=== PATIENT | female | born 1990 | race Caucasian/White ===

== ENCOUNTER 2019-09-04 10:40 | Outpatient (CLI) | payer OTHER, SELFPAY ==
[2019-09-04] VITALS (27 sets, daily range): BP systolic 125–145; BP diastolic 76–95; PULSE 90–148; O2SAT 97–100
[2019-09-04 11:48] LABS: Basophils Absolute Auto 0.1 K/mm3 (0.0-0.1); Basophils Percent Auto 0.3 % (0.2-1.2); Eosinophils Absolute Auto 0.1 K/mm3 (0-0.3); Eosinophils Percent Auto 0.7 % (0-4.4); Hematocrit 34.3 % (37.0-47.0); Hemoglobin 11.1 g/dL (12.0-15.0); Immature Granulocyte Absolute 0.11 K/mm3 (0.00-0.031); Immature Granulocyte Percent A 0.6 % (0-0.5); Lymphocytes Percent Auto 14.9 % (18.3-44.2); Mean Corpuscular HGB Conc 32.4 g/dl (32-36); Mean Corpuscular Hemoglobin 26.1 pg (26-34); Mean Corpuscular Volume 80.7 fl (80-100); Mean Platelet Volume 9.9 fl (7.4-10.4); Monocytes Absolute Auto 0.9 K/mm3 (0.1-0.6); Monocytes Percent Auto 4.9 % (2.6-8.5); Neutrophils Absolute Auto 13.7 K/mm3 (1.3-6.7); Neutrophils Percent Auto 78.6 % (45.5-73.1); Platelet Count Result 345 k/mm3 (150-375); Red Blood Count 4.25 M/mm3 (4.2-5.4); Red Cell Distribution Width 14.8 % (11.5-14.5); White Blood Count 17.5 K/mm3 (4.5-10.0)
[2019-09-04 11:54] LABS: Add Urine Microscopic? YES; Appearance Urine Cloudy (Clear); Bacteria Urine 2+ /hpf; Bilirubin Urine Negative (Negative); Blood Urine Negative (Negative); Color Urine Amber (Yellow); Glucose Urine UA Negative (Negative); Ketones Urine Negative (Negative); Leukocyte Esterase Ur 2+ LEU/UL (NEGATIVE); Mucus Urine Heavy /lpf; Nitrate Urine Negative (Negative); Protein Urine 2+ mg/dL (Negative); Squamous Epithelial Cell Urine Many /hpf (Few); Urobilinogen Urine Negative mg/dL (<2.0)
[2019-09-04 12:00] LABS: Alanine Aminotransferase 24 U/L (4-35); Albumin Level 3.7 g/dL (3.5-5.1); Alkaline Phosphatase 91 U/L (38-126); Aspartate Amino Transferase 23 U/L (14-36); Bilirubin,Total < 0.1 mg/dL (0.2-1.3); Blood Urea Nitrogen 6 mg/dL (7-17); Calcium 9.5 mg/dL (8.4-10.2); Carbon Dioxide 22 mmol/L (22-30); Chloride 105 mmol/L (98-107); Estimated Glomerular Filt Rate > 60; Glucose 92 mg/dL (65-105); Potassium 3.7 mmol/L (3.4-5.0); Sodium 134 mmol/L (137-145); Uric Acid 3.4 mg/dL (2.5-7.5)
[2019-09-04 12:03] LABS: Specific Grav Ur 1.033 (1.001-1.035)
[2019-09-04 12:38] LABS: Creatinine Urine 202.5 mg/dL; Total Protein Urine Random 10 mg/dL
--- NOTE | 2019-09-04 12:55 | PC.NURSE ---
Dr Marshall called in, OK to dc home with BP precautions. Encourage to increase PO fluids and Tylenol as needed.
== END 2019-09-04 13:00 | disposition home or self-care (01) ==
LOC: ANHOBOP 10:54 → ANHOBPP 10:55
PROVIDERS: PCP Physician Assistant; Visit Provider Obstetrics & Gynecology
DX: O13.9 Gestational [pregnancy-induced] hypertension without significant proteinuria, unspecified trimester (principal)
CPT/HCPCS: 36415; 80053; 81001; 82570; 84156; 84550; 85025; 87086; 87088; 99199

== ENCOUNTER 2019-11-20 15:58 | Outpatient (CLI) | payer OTHER, SELFPAY ==
[2019-11-20 16:31] VITALS: BMI 41.8
[2019-11-20 16:32] VITALS: BP 145/83; PULSE 114; RESP 18
[2019-11-20 16:33] VITALS: BP 145/83; PULSE 114
[2019-11-20 16:46] VITALS: BP 146/77; PULSE 116
[2019-11-20 17:01] VITALS: BP 144/77; PULSE 116
[2019-11-20 17:03] LABS: Basophils Percent Auto 0.2 % (0.2-1.2); Eosinophils Absolute Auto 0.1 K/mm3 (0-0.3); Eosinophils Percent Auto 0.6 % (0-4.4); Hematocrit 33.6 % (37.0-47.0); Hemoglobin 10.8 g/dL (12.0-15.0); Immature Granulocyte Percent A 0.6 % (0-0.5); Lymphocytes Absolute Auto 2.46 K/mm3 (0.9-3.2); Lymphocytes Percent Auto 14.8 % (18.3-44.2); Mean Corpuscular HGB Conc 32.1 g/dl (32-36); Mean Corpuscular Hemoglobin 26.3 pg (26-34); Mean Corpuscular Volume 81.8 fl (80-100); Mean Platelet Volume 10.3 fl (7.4-10.4); Monocytes Absolute Auto 0.9 K/mm3 (0.1-0.6); Monocytes Percent Auto 5.3 % (2.6-8.5); Neutrophils Absolute Auto 13.1 K/mm3 (1.3-6.7); Neutrophils Percent Auto 78.5 % (45.5-73.1); Platelet Count Result 318 k/mm3 (150-375); Red Blood Count 4.11 M/mm3 (4.2-5.4); Red Cell Distribution Width 14.8 % (11.5-14.5); White Blood Count 16.6 K/mm3 (4.5-10.0)
[2019-11-20 17:08] LABS: Add Urine Microscopic? YES; Appearance Urine Cloudy (Clear); Bacteria Urine Trace /hpf; Bilirubin Urine Negative (Negative); Blood Urine Negative (Negative); Glucose Urine UA Negative (Negative); Ketones Urine Trace mg/dL (Negative); Leukocyte Esterase Ur 3+ LEU/UL (NEGATIVE); Mucus Urine Heavy /lpf; Nitrate Urine Negative (Negative); Protein Urine 2+ mg/dL (Negative); Squamous Epithelial Cell Urine Many /hpf (Few); WBC Urine 16-20 /hpf (0-3)
[2019-11-20 17:09] LABS: Color Urine Dark Yellow (Yellow); Specific Grav Ur 1.031 (1.001-1.035)
[2019-11-20 17:15] LABS: Alanine Aminotransferase 58 U/L (4-35); Albumin Level 3.3 g/dL (3.5-5.1); Alkaline Phosphatase 153 U/L (38-126); Anion Gap 11.2 mmol/L (7-16); Aspartate Amino Transferase 42 U/L (14-36); Bilirubin,Total 0.2 mg/dL (0.2-1.3); Blood Urea Nitrogen 9 mg/dL (7-17); Calcium 8.7 mg/dL (8.4-10.2); Carbon Dioxide 22 mmol/L (22-30); Chloride 105 mmol/L (98-107); Estimated CRCL calculation 148 ml/min; Estimated Glomerular Filt Rate > 60; Glucose 117 mg/dL (65-105); Potassium 4.2 mmol/L (3.4-5.0); Sodium 134 mmol/L (137-145); Uric Acid 5.1 mg/dL (2.5-7.5)
[2019-11-20 17:31] VITALS: BP 143/77; PULSE 106
[2019-11-20 17:34] LABS: Creatinine Urine 333.1 mg/dL; Total Protein Urine Random 9 mg/dL
[2019-11-20 18:00] VITALS: BP 143/77; PULSE 99
--- NOTE | 2019-11-20 18:04 | PC.NURSE ---
called Dr. Marshall and notified pt present here for elevated BP. PIH lab result reported. elevated Liver enzyme was made aware. order received to increase procardia XL to 60 mg in am and 30 mg in night. educated smoking cessation and diet control for GDM. Pt has appointment at [facility] tomorrow and with Dr. Marshall on sunday. HIP and preeclampsia precaution given. pt verbalized understanding.
== END 2019-11-20 18:00 | disposition home or self-care (01) ==
LOC: ANHOBOP 16:04 → ANHOBPP 16:05
PROVIDERS: PCP Physician Assistant; Visit Provider Obstetrics & Gynecology
DX: O13.9 Gestational [pregnancy-induced] hypertension without significant proteinuria, unspecified trimester (principal)
CPT/HCPCS: 36415; 59025; 80053; 81001; 82570; 84156; 84550; 85025; 87086; 87088; 99199

== ENCOUNTER 2019-12-01 16:29 | Outpatient (CLI) | payer OTHER, SELFPAY ==
[2019-12-01] VITALS (7 sets, daily range): BP systolic 103–168; BP diastolic 64–110; PULSE 96–140
--- NOTE | ~2019-12-01 | US_ITS ---
EXAMINATION: US OB BPP wo non-stress EXAM DATE: 12/01/2019 18:08 INDICATION: Elevated blood pressure. 3rd trimester. TECHNIQUE: Pelvic obstetrical transabdominal sonogram was performed by a technologist. There are mu ltiple grayscale and Doppler images available for interpretation. FINDINGS: There is a single fetus identified in vertex presentation with a heart rate of 130 beats pe r minute. The placenta is located in the posterior position. There is no sonographic evidence of ret roplacental hemorrhage identified. BIOPHYSICAL PROFILE (performed by the technologist) breathing (30 sec sustained breathing in 30 minutes): 2 out of 2 movement (3 gross body movements in 30 minutes): 2 out of 2 tone (one episode of ysetclj-ntwckhhai-sxltidz limb movement): 2 out of 2 Amniotic fluid pocket (2 cm): 2 out of 2 Total score: 8 out of 8 IMPRESSION: 1. Single fetus with heart rate of 130 bpm. 2. Normal biophysical profile score of 8 out of 8. Reviewed, dictated and finalized at location A.
[2019-12-01 17:28] LABS: Basophils Percent Auto 0.2 % (0.2-1.2); Eosinophils Absolute Auto 0.1 K/mm3 (0-0.3); Eosinophils Percent Auto 0.6 % (0-4.4); Hematocrit 33.2 % (37.0-47.0); Hemoglobin 10.5 g/dL (12.0-15.0); Immature Granulocyte Absolute 0.12 K/mm3 (0.00-0.031); Immature Granulocyte Percent A 0.7 % (0-0.5); Lymphocytes Percent Auto 17.2 % (18.3-44.2); Mean Corpuscular HGB Conc 31.6 g/dl (32-36); Mean Corpuscular Hemoglobin 25.4 pg (26-34); Mean Corpuscular Volume 80.2 fl (80-100); Mean Platelet Volume 10.6 fl (7.4-10.4); Monocytes Percent Auto 5.6 % (2.6-8.5); Neutrophils Absolute Auto 13.2 K/mm3 (1.3-6.7); Neutrophils Percent Auto 75.7 % (45.5-73.1); Platelet Count Result 294 k/mm3 (150-375); Red Blood Count 4.14 M/mm3 (4.2-5.4); Red Cell Distribution Width 14.8 % (11.5-14.5); White Blood Count 17.4 K/mm3 (4.5-10.0)
[2019-12-01 17:36] LABS: Add Urine Microscopic? YES; Appearance Urine Cloudy (Clear); Bacteria Urine Trace /hpf; Bilirubin Urine Negative (Negative); Blood Urine Negative (Negative); Color Urine Yellow (Yellow); Glucose Urine UA Negative (Negative); Ketones Urine Negative (Negative); Leukocyte Esterase Ur 2+ LEU/UL (NEGATIVE); Mucus Urine Few /lpf; Nitrate Urine Negative (Negative); Protein Urine 2+ mg/dL (Negative); RBC Urine 0-2 /hpf (0-2); Specific Grav Ur 1.027 (1.001-1.035); Squamous Epithelial Cell Urine Many /hpf (Few); Urobilinogen Urine Negative mg/dL (<2.0)
[2019-12-01 17:36] LABS: Total Protein Urine Random 9 mg/dL
[2019-12-01 17:49] LABS: Alanine Aminotransferase 54 U/L (4-35); Albumin Level 3.1 g/dL (3.5-5.1); Alkaline Phosphatase 156 U/L (38-126); Anion Gap 8.9 mmol/L (7-16); Aspartate Amino Transferase 36 U/L (14-36); Bilirubin,Total 0.2 mg/dL (0.2-1.3); Blood Urea Nitrogen 12 mg/dL (7-17); Calcium 8.6 mg/dL (8.4-10.2); Carbon Dioxide 21 mmol/L (22-30); Chloride 107 mmol/L (98-107); Estimated Glomerular Filt Rate > 60; Glucose 82 mg/dL (65-105); Potassium 3.9 mmol/L (3.4-5.0); Sodium 133 mmol/L (137-145); Uric Acid 5.4 mg/dL (2.5-7.5)
== END 2019-12-01 19:10 | disposition home or self-care (01) ==
LOC: ANHOBOP 16:56 → ANHOBPP 16:57
PROVIDERS: PCP Physician Assistant; Visit Provider Obstetrics & Gynecology
DX: O13.9 Gestational [pregnancy-induced] hypertension without significant proteinuria, unspecified trimester (principal)
CPT/HCPCS: 36415; 59025; 76819; 80053; 81001; 82570; 84156; 84550; 85025; 87086; 99199

== ENCOUNTER 2019-12-12 11:19 | Inpatient (IN) | payer OTHER, SELFPAY ==
--- NOTE | 2019-12-03 14:05 | PC.NURSE ---
VERIFIED WITH OR SCHEDULE AND PATIENT --C/S WITH BILATERAL TUBAL LIGATION ON 12/16/19 AT 0900 PATIENT GIVEN REQUISITION FOR PRE-OP LAB DRAW ON 12/15/19
[2019-12-12] VITALS (77 sets, daily range): BP systolic 101–163; BP diastolic 50–116; PULSE 75–127; RESP 14–24; TEMP 36.1–37.1; O2SAT 91–100; BMI 42.8
[2019-12-12] MEDS: LABETALOL HCL INJ 100 MG/20 ML VIAL 20 MG IV PUSH (12:00)
[2019-12-12] MEDS: LACTATED RINGERS 1,000 ML 125 ML IV CONT (12:05)
[2019-12-12 12:09] LABS: Glucose Point of Care 99 (65-105)
--- NOTE | 2019-12-12 12:12 | LDADM ---
This patient, Alexandra Isaacs, was admitted to Labor/Delivery/Recovery 119 on 12/12/19 at 11:19. Plans for section, pain management and were discussed with patient. Patient/family oriented to hospital policies and general routines including ID bracelet, bed and alarms, visiting hours, pain management, procedures, bathroom and other care routines, personal items, smoking policy, room service/diet and guest tray routines, security routines, and visiting hours. Patient/Family are encouraged to report perceived risks to care and to ask questions if they do not understand what they are told or what they should do. See OBIX for further documentation.
[2019-12-12] MEDS: ONDANSETRON INJ 4 MG/2 ML VIAL IV PUSH (12:16)
[2019-12-12 12:18] LABS: Basophils Absolute Auto 0.1 K/mm3 (0.0-0.1); Basophils Percent Auto 0.4 % (0.2-1.2); Eosinophils Absolute Auto 0.1 K/mm3 (0-0.3); Eosinophils Percent Auto 0.5 % (0-4.4); Hematocrit 34.8 % (37.0-47.0); Immature Granulocyte Percent A 0.6 % (0-0.5); Lymphocytes Absolute Auto 2.69 K/mm3 (0.9-3.2); Lymphocytes Percent Auto 16.1 % (18.3-44.2); Mean Corpuscular HGB Conc 31.6 g/dl (32-36); Mean Corpuscular Volume 79.1 fl (80-100); Mean Platelet Volume 10.7 fl (7.4-10.4); Monocytes Absolute Auto 0.9 K/mm3 (0.1-0.6); Monocytes Percent Auto 5.1 % (2.6-8.5); Neutrophils Absolute Auto 12.9 K/mm3 (1.3-6.7); Neutrophils Percent Auto 77.3 % (45.5-73.1); Platelet Count Result 315 k/mm3 (150-375); White Blood Count 16.7 K/mm3 (4.5-10.0)
--- NOTE | 2019-12-12 12:18 | WPDANESEPPF ---
Anes - Initial Pre Proc Eval Procedure: Operation Date: 12/16/19 09:00 Proposed Procedures p Primary Section wtih Bilateral Tubal Ligation - Kathy Marshall MD Date/Time: 12/12/19 12:18 Surgeon: Sigifredo Colon MD Pre Op Diagnosis: Patient Data Age: 29 Gender: F Height: 5 ft 5 in Weight: 116.82 kg Last Vital Signs Pulse 101 H 12/12/19 12:16 BP 130/106 H 12/12/19 12:16 Allergies Allergy/AdvReac Type Severity Reaction Status Date / Time No Known Allergies Allergy Verified 07/11/14 19:09 Home Medications Medication Instructions Recorded Confirmed Type insulin glargine [Lantus U-100 16 unit SUBCUT QAM 11/20/19 12/12/19 History Insulin] insulin glargine [Lantus U-100 18 unit SUBCUT HS 11/20/19 12/12/19 History Insulin] insulin lispro 6 unit SUBCUT QAM 11/20/19 12/12/19 History insulin lispro 10 unit SUBCUT BIDWMEAL 11/20/19 12/12/19 History nifedipine [Procardia XL] 30 mg PO BID 11/20/19 12/12/19 History aspirin [Adult Low Dose Aspirin] 162 mg PO DAILY 12/03/19 12/12/19 History folic acid 1 mg PO DAILY 12/03/19 12/12/19 History magnesium 400 mg PO DAILY 12/03/19 12/12/19 History omeprazole 20 mg PO DAILY 12/03/19 12/12/19 History Laboratory Tests 12/12/19 12/12/19 12/12/19 11:59 11:59 11:59 WBC Pending RBC Pending Hgb Pending Hct Pending MCV Pending MCH Pending MCHC Pending RDW Pending Plt Count Pending MPV Pending Immature Gran % (Auto) Pending Neut % (Auto) Pending Lymph % (Auto) Pending Starke % (Auto) Pending Eos % (Auto) Pending Baso % (Auto) Pending Lymph # (Auto) Pending Starke # (Auto) Pending Eos # (Auto) Pending Baso # (Auto) Pending Abs Immat Gran (auto) Pending Absolute Neuts (auto) Pending Absolute Nucleated RBC Pending Nucleated RBC % Pending Sodium Pending Potassium Pending Chloride Pending Carbon Dioxide Pending Anion Gap Pending BUN Pending Creatinine Pending Estim Creat Clear Calc Pending Estimated GFR Pending Glucose Pending POC Capillary Glucose Uric Acid Pending Calcium Pending Total Bilirubin Pending AST Pending ALT Pending Alkaline Phosphatase Pending Total Protein Pending Albumin Pending RPR Pending 12/12/19 12:08 WBC RBC Hgb Hct MCV MCH MCHC RDW Plt Count MPV Immature Gran % (Auto) Neut % (Auto) Lymph % (Auto) Starke % (Auto) Eos % (Auto) Baso % (Auto) Lymph # (Auto) Starke # (Auto) Eos # (Auto) Baso # (Auto) Abs Immat Gran (auto) Absolute Neuts (auto) Absolute Nucleated RBC Nucleated RBC % Sodium Potassium Chloride Carbon Dioxide Anion Gap BUN Creatinine Estim Creat Clear Calc Estimated GFR Glucose POC Capillary Glucose 99 mg/dl mg/dl (65-105) Uric Acid Calcium Total Bilirubin AST ALT Alkaline Phosphatase Total Protein Albumin RPR Patient hx anesthesia problems: none Family hx anesthesia problems: none [facility] Past Medical History Medical History Diabetes Hypertension Family History Family History Father Muscle wasting disorder Heart disease Kidney disease Grandparent Congestive heart failure
--- NOTE | 2019-12-12 12:21 | PM.IMHP ---
H&P: HPI History of Present Illness Date/Time: 12/12/19 12:21 Chief complaint: Narrative: Alexandra Isaacs is a 29 year old female 0 1 0 presents at 37 weeks gestation for delivery. She has been followed for elevated blood pressures and gestational diabetes and her blood pressures have been continually elevated though she has been asymptomatic. Was seen in Maternal- Medicine appointment today with blood pressures of 170/110 and 160/90 and their recommendation is as she is 37 weeks it is time for delivery. Also her blood sugars have been well controlled with insulin twice daily. Although her pressures have been markedly elevated today she remains asymptomatic. of note her last delivery at 27 weeks via delivery was also due to elevated blood pressure. She is also scheduled for tubal ligation which we have rediscussed and she understands and consents well. Review of Systems Review of Systems: All systems reviewed & are unremarkable except as noted in HPI and below PMFSH Past Medical History Medical History Diabetes Hypertension Family History Family History Father Muscle wasting disorder Heart disease Kidney disease Grandparent Congestive heart failure Cancer Social History Social History Smoking packs per day: 0.5 Smoking cigarettes per day: 10.0 Smoking status: Current every day smoker Tobacco type: cigarettes Second hand tobacco smoke exposure: Yes Alcohol intake: current Substance use: never Additional occupation/education comments: med records Gender identity (if verbalized by the patient): Female Spiritual care concerns: No Meds Home Medications and Allergies Home Medications Medication Instructions Recorded Confirmed Type insulin glargine [Lantus U-100 16 unit SUBCUT QAM 11/20/19 12/12/19 History Insulin] insulin glargine [Lantus U-100 18 unit SUBCUT HS 11/20/19 12/12/19 History Insulin] insulin lispro 6 unit SUBCUT QAM 11/20/19 12/12/19 History insulin lispro 10 unit SUBCUT BIDWMEAL 11/20/19 12/12/19 History nifedipine [Procardia XL] 30 mg PO BID 11/20/19 12/12/19 History aspirin [Adult Low Dose Aspirin] 162 mg PO DAILY 12/03/19 12/12/19 History folic acid 1 mg PO DAILY 12/03/19 12/12/19 History magnesium 400 mg PO DAILY 12/03/19 12/12/19 History omeprazole 20 mg PO DAILY 12/03/19 12/12/19 History Allergies Allergy/AdvReac Type Severity Reaction Status Date / Time No Known Allergies Allergy Verified 07/11/14 19:09 Vital Signs Vital Signs - 24 hr 12/12/19 11:39 12/12/19 11:46 12/12/19 12:00 Pulse Rate 121 H 127 H 114 H Blood Pressure 163/116 H 141/115 H 12/12/19 12:02 12/12/19 12:12 12/12/19 12:16 Pulse Rate 116 H 101 H 101 H Blood Pressure 133/90 135/96 H 130/106 H Exam Const: General: no acute distress Resp: Auscultation: clear to auscultation bilaterally Cardio: Rate: regular rate Rhythm: regular rhythm GI: GI Palp: Yes Soft to palpation Other: Fundal height 36cm heart tones 140 and reactive H&P: Results Labs Labs: Short CBC 12/12/19 Range/Units 11:59 WBC 16.7 H (4.5-10.0) K/mm3 Hgb 11.0 L (12.0-15.0) g/dL Hct 34.8 L (37.0-47.0) % Plt Count 315 (150-375) k/mm3 Assessment and Plan Assessment and plan (1) 37 weeks gestation of : Code(s): Z3A.37 - 37 weeks gestation of Status: Acute (2) Hypertension affecting in third trimester: Code(s): O16.3 - Unspecified maternal hypertension, third trimester Status: Acute (3) Gestational diabetes: Code(s): O24.419 - Gestational diabetes mellitus in , unspecified control Status: Acute (4) Encounter for female sterilization procedure: Code(s): Z30.2 - Encounter for steriliz
[2019-12-12] MEDS: ceFAZolin 2 GM/D5W 50 ML 2 GM/50 ML BAG IVPB (12:28)
[2019-12-12 12:36] LABS: Alanine Aminotransferase 41 U/L (4-35); Albumin Level 3.2 g/dL (3.5-5.1); Alkaline Phosphatase 174 U/L (38-126); Anion Gap 7 mmol/L (8-16); Aspartate Amino Transferase 31 U/L (14-36); Bilirubin,Total 0.2 mg/dL (0.2-1.3); Blood Urea Nitrogen 12 mg/dL (7-17); Calcium 9.2 mg/dL (8.4-10.2); Carbon Dioxide 18 mmol/L (22-30); Chloride 107 mmol/L (98-107); Estimated CRCL calculation 177 ml/min; Estimated Glomerular Filt Rate > 60; Glucose 87 mg/dL (65-105); Sodium 132 mmol/L (137-145); Uric Acid 4.8 mg/dL (2.5-7.5)
--- NOTE | 2019-12-12 13:31 | P.PCNOB_ITS ---
OB - Delivery Note Procedure Procedure: Procedures Operation Date: 12/16/19 09:00 Actual Procedures Side Surgeon p Primary Section wtih Bilateral Tubal Ligation Bilateral Kathy Marshall MD events: Gestational Diabetes and Induced HTN Route of delivery: (with bilateral tubal ligation) Specimen: Yes (1. placenta 2. tubes (2)) Estimated blood loss (mL): 200 Anesthesia type: Spinal Disposition: PACU Narrative: Patient prepped draped usual manner for this procedure. Pfannenstiel incision was made was carried down to the fascia which was then extended bilaterally the length of the skin incision. Superiorly and inferiorly dissected away from the rectus muscles which were then bluntly dissected and the peritoneum was entered. Bladder flap was developed without difficulty. Uterus scored and extended lower segment with vertex delivered without difficulty. Rest of baby was delivered placenta after the cord was clamped and cut was also delivered. Uterus was closed using 0 Monocryl in a running interlocking manner with good approximation and hemostasis noted. Bilaterally the tubes were ligated using 0 plain suture and. The tissue was removed. The right ovary had a cyst which was left in place due to increased vascularity. Uterus returned to the abdomen gutters were cleared of serosanguineous fluid and clots pedicles were noted to be hemostatic and the incision was hemostatic as well. Fascia was approximated using 0 Vicryl left angle midline at right angle midline with good approximation hemostasis noted. Subcutaneous tissue was approximated using 0 plain suture and tin used to approximate skin edges. Patient sent to recovery room in stable condition. [place] Baby Weeks of gestation at delivery: 37 gender: Female Weight (pounds): 6 Weight (ounces): 5 score one minute: 8 score five minutes: 9
[2019-12-12] MEDS: MAGNESIUM SULF 4 GM/WATER100ML 4 GM/100 ML BAG IVPB (13:54)
--- NOTE | 2019-12-12 13:58 | SUR.PHASEI ---
Infant to room and placed skin to skin.
[2019-12-12] MEDS: MAGNESIUM SULF 20GM/WATER500ML 500 ML 50 MG IV CONT (14:28)
[2019-12-12] MEDS: NIFEdipine 10 MG CAPSULE 30 MG PO (19:26)
[2019-12-12] MEDS: DOCUSATE SODIUM 100 MG CAPSULE PO (19:26)
[2019-12-12] MEDS: LACTATED RINGERS 1,000 ML 75 ML IV CONT (19:27)
[2019-12-13] MEDS: MAGNESIUM SULF 20GM/WATER500ML 500 ML 50 MG IV CONT (00:32)
[2019-12-13] MEDS: KETOROLAC 30 MG/ML VIAL (*BKC) IV PUSH (00:34)
[2019-12-13 04:30] VITALS: BP 137/91; PULSE 88; RESP 18; TEMP 36.9; O2SAT 100
[2019-12-13 05:34] LABS: Basophils Percent Auto 0.3 % (0.2-1.2); Eosinophils Absolute Auto 0.1 K/mm3 (0-0.3); Hematocrit 30.7 % (37.0-47.0); Hemoglobin 9.6 g/dL (12.0-15.0); Immature Granulocyte Absolute 0.08 K/mm3 (0.00-0.031); Immature Granulocyte Percent A 0.6 % (0-0.5); Lymphocytes Absolute Auto 2.99 K/mm3 (0.9-3.2); Lymphocytes Percent Auto 20.7 % (18.3-44.2); Mean Corpuscular HGB Conc 31.3 g/dl (32-36); Mean Corpuscular Hemoglobin 24.7 pg (26-34); Mean Corpuscular Volume 78.9 fl (80-100); Mean Platelet Volume 10.8 fl (7.4-10.4); Monocytes Percent Auto 7.1 % (2.6-8.5); Neutrophils Absolute Auto 10.2 K/mm3 (1.3-6.7); Neutrophils Percent Auto 70.3 % (45.5-73.1); Platelet Count Result 305 k/mm3 (150-375); Red Blood Count 3.89 M/mm3 (4.2-5.4); Red Cell Distribution Width 14.9 % (11.5-14.5); White Blood Count 14.4 K/mm3 (4.5-10.0)
[2019-12-13 07:30] VITALS: BP 141/86; PULSE 101; RESP 20; TEMP 36.5; O2SAT 99
--- NOTE | 2019-12-13 08:30 | WPDANLDNPN2 ---
Anes-Prog Note L&D-Neuraxial Date/Time: 12/13/19 08:30 Neuraxial medications: intrathecal PF morphine Opiod-related complaints: none Patient feedback: Patient satisfied with post-operative pain management.
--- NOTE | 2019-12-13 08:30 | WPDANLDPN2 ---
Anes-Prog Note L&D Date/Time: 12/13/19 08:30 Comfortable throughout: section Neuraxial method: spinal Epidural/Spinal procedure site: clean & non-tender Neuro status: Neuro function grossly intact. Cardiovascular status: normal Respiratory status: normal Airway patency: baseline Mental status: baseline Post-Op hydration status: normal Vital Signs: Last Vital Signs Temp 36.9 C 12/13/19 04:30 Pulse 88 12/13/19 04:30 Resp 18 12/13/19 04:30 BP 137/91 H 12/13/19 04:30 Pulse Ox 100 12/13/19 04:30 I/O: Intake & Output 12/12/19 12/13/19 12/13/19 23:59 07:59 15:59 Intake Total 400 1350 Output Total 2575 1050 Balance -2175 300 Post-procedural complaints: none Patient feedback: Patient satisfied with anesthetic care.
[2019-12-13] MEDS: NIFEdipine 10 MG CAPSULE 30 MG PO ×2 (10:06→20:28)
[2019-12-13] MEDS: DOCUSATE SODIUM 100 MG CAPSULE PO ×2 (10:07→16:43)
[2019-12-13] MEDS: MULTIVIT/MIN/PREN/FOL AC/IRON TABLET 1 TAB PO (10:07)
[2019-12-13] MEDS: POLYSACCHARIDE IRON COMPLEX 150 MG CAPSULE PO ×2 (10:07→16:43)
[2019-12-13] MEDS: IBUPROFEN 600 MG TABLET PO ×2 (10:08→16:44)
[2019-12-13 12:55] VITALS: BP 141/71; PULSE 100; RESP 18; TEMP 36.2; O2SAT 99
[2019-12-13 17:00] VITALS: BP 143/94; PULSE 87
[2019-12-13 19:20] VITALS: BP 149/83; PULSE 77; RESP 13; TEMP 36.8; O2SAT 99
[2019-12-14] MEDS: IBUPROFEN 600 MG TABLET PO ×2 (00:19→08:31)
[2019-12-14 00:25] VITALS: BP 134/79
[2019-12-14 04:05] VITALS: BP 142/85
[2019-12-14 06:55] VITALS: BP 148/91; PULSE 82; RESP 20; TEMP 36.7
[2019-12-14] MEDS: NIFEdipine 10 MG CAPSULE 30 MG PO (08:31)
[2019-12-14] MEDS: POLYSACCHARIDE IRON COMPLEX 150 MG CAPSULE PO (08:31)
[2019-12-14] MEDS: MULTIVIT/MIN/PREN/FOL AC/IRON TABLET 1 TAB PO (08:31)
[2019-12-14] MEDS: DOCUSATE SODIUM 100 MG CAPSULE PO (08:31)
[2019-12-14] MEDS: TETANUS,DIPHTHERIA,AC PERTUSSIS ADULT (0.5 ML) BOOSTRIX IM (08:32)
[2019-12-14] MEDS: MEASLES,MUMPS,RUBELLA VACCINE 0.5 ML VIAL SUB-Q (08:32)
[2019-12-14] MEDS: SIMETHICONE 80 MG TAB.CHEW PO (08:36)
--- NOTE | 2019-12-14 09:49 | PM.OBDSVD ---
DS: Admitting Diagnosis Admitting Diagnosis Admitting Diagnosis: OB - DS: Summary OB Procedures : None OB Procedures Intrapartum: and Tubal ligation OB Procedures: : None Peripartum Data Procedures: Procedures Operation Date: 12/12/19 12:30 Actual Procedures Side Surgeon p Primary Section wtih Bilateral Tubal Ligation Bilateral Sigiferdo Colon MD Time Spent with Patient Time attestation: Total time spent providing and/or coordinating discharge services: DS: Data Data Completed and Pending Pending studies at discharge: Pending at discharge 12/12/19 12:55 Surgical [PTH] Routine Discharge Plan Discharge Discharging Clinician: Sigifredo Colon Patient Disposition: Home, Self-Care Activity: as tolerated Diet: as tolerated Wound Care Instructions: incision open to air Discharge Instructions: office sunday for staple removal Patient Instructions: How to Stop Smoking (GEN), Antibiotic Form Stand Alone Forms: General Discharge Information Follow-up/Referrals: Sigifredo Colon MD [Physician] - Discharge Medications: New hydrocodone-acetaminophen [[place]] 10-325 mg Tablet 1 tab PO Q3H PRN (Reason: Pain Rated 7-10) Qty: 20 RF: 0 ibuprofen 600 mg Tablet 600 mg PO Q6H PRN (Reason: Cramping) Qty: 30 RF: 0 Continued nifedipine [Procardia XL] 30 mg Tablet Extended Release 24hr 30 mg PO BID RF: 0 omeprazole 20 mg Capsule,Delayed Release(Dr/Ec) 20 mg PO DAILY RF: 0 magnesium 200 mg Tablet 400 mg PO DAILY RF: 0 Discontinued Lantus U-100 Insulin 100 unit/mL Solution 16 unit SUBCUT QAM RF: 0 Lantus U-100 Insulin 100 unit/mL Solution 18 unit SUBCUT HS RF: 0 insulin lispro 100 unit/mL Insulin Pen 6 unit SUBCUT QAM RF: 0 insulin lispro 100 unit/mL Insulin Pen 10 unit SUBCUT BIDWMEAL RF: 0 aspirin [Adult Low Dose Aspirin] 81 mg Tablet,Delayed Release (Dr/Ec) 162 mg PO DAILY RF: 0 folic acid 1 mg Tablet 1 mg PO DAILY RF: 0 Date of admission: 12/12/19 11:19 Primary Care Provider: Kim,Shaggy Admitting Provider: Sigifredo Colon Attending physician on admission: Sigifredo Colon
[2019-12-15 12:21] LABS: Rapid Plasma Reagin Non-Reactive (NonReactive)
[2019-12-16 07:48] VITALS: BP 146/101; PULSE 102; RESP 20; TEMP 37.1; O2SAT 100
== END 2019-12-14 10:47 | disposition home or self-care (01) | DRG 540 ==
LOC: ANHLDR 13:15 → ANHOB2 16:27
PROVIDERS: Admitting Provider Obstetrics & Gynecology; PCP Physician Assistant; Visit Provider Obstetrics & Gynecology
DX: O13.4 Gestational [pregnancy-induced] hypertension without significant proteinuria, complicating childbirth (principal); Z30.2 Encounter for sterilization; F17.210 Nicotine dependence, cigarettes, uncomplicated; O99.334 Smoking (tobacco) complicating childbirth; O24.424 Gestational diabetes mellitus in childbirth, insulin controlled; O14.14 Severe pre-eclampsia complicating childbirth; O99.214 Obesity complicating childbirth; E66.01 Morbid (severe) obesity due to excess calories; Z3A.37 37 weeks gestation of pregnancy; Z37.0 Single live birth
CPT/HCPCS: 36415; 80053; 84550; 85025; 86592; 86850; 86900; 86901; 88302; 88307; 90710; 90715; A9270; J0131; J0690; J1885; J2274; J2405; J2590; J3475; J7120

== ENCOUNTER 2019-12-18 00:57 | Observation (INO) | payer OTHER, SELFPAY ==
[2019-12-18] VITALS (55 sets, daily range): BP systolic 127–150; BP diastolic 75–98; PULSE 73–100; RESP 16–18; TEMP 35.4–36.4; O2SAT 98–100
--- NOTE | 2019-12-18 01:00 | PC.NURSE ---
Pt arrived from [facility] via ambulance. Report previously received from [facility]. Zofran 8mg, 2gm magnesium bolus given over 1hr, 10mg hydralizine, and 75mcg of fentanyl given. Labs and CT obtained. IV in RAC. Pt arrived with a headache and elevated BP, post . HX of Bipolar and GERD. Pt states they stopped the magnesium prior to the CT and states there was still about 20mins left to be given and that it was not hooked back up. States she took 1gm of tylenol at 1930 and 1gm at 1999. Hx of elevated BP prior to , no medications. Hx of 27wk delivery due to severe IUGR. States tin were removed from incision yesterday, incision intact, 4 steri strips to the right side of the incision, no drainage noted.
[2019-12-18] MEDS: MAGNESIUM SULF 20GM/WATER500ML 500 ML 50 MG IV CONT (01:46)
[2019-12-18] MEDS: LACTATED RINGERS 1,000 ML 75 ML IV CONT (01:47)
[2019-12-18] MEDS: IBUPROFEN 600 MG TABLET PO (01:50)
[2019-12-18] MEDS: NIFEdipine 30 MG TAB.ER.24 PO (08:37)
--- NOTE | 2019-12-18 08:58 | PM.IMHP ---
H&P: HPI History of Present Illness Date/Time: 12/18/19 08:58 Chief complaint: preeclampsia Narrative: Alexandra Isaacs is a 29 year old female s/p section on 12/11 for gestatinoal HTN. Yesterday, on POD#5 she began having headaches not relieved by tylenol and she took her BP at home and it was noted to be in the 160s/100s. She was evaluated at [facility] and was given IV hydralazine and MgSO4 started. Then transferred to her to [place] for further care. This morning she states she feels much better and headache is resolved. She is taking procardia 30mg BID. Review of Systems Constitutional: Constitutional: Reports no additional constitutional complaints Cardiovascular: Cardiovascular: Reports no additional cardiovascular complaints Respiratory: Respiratory: Reports no additional respiratory complaints Gastrointestinal: Gastrointestinal: Reports no additional gastrointestinal complaints Genitourinary: Genitourinary: Reports no additional female genitourinary complaints Musculoskeletal: Musculoskeletal: Reports no additional musculoskeletal complaints Neurologic: Reports system reviewed and no additional complaints, except as documented Psychiatric: Psychiatric: Reports no additional psychiatric complaints [facility] Past Medical History Medical History (Updated 12/18/19 @ 09:03 by Alma Moore DO) Diabetes Hypertension Surgical History Surgical History (Updated 12/18/19 @ 09:02 by Alma Moore DO) H/O section Social History Social History Smoking packs per day: 0.5 Smoking cigarettes per day: 10.0 Smoking status: Current every day smoker Tobacco type: cigarettes Second hand tobacco smoke exposure: Yes Alcohol intake: current Substance use: never Additional occupation/education comments: med records Gender identity (if verbalized by the patient): Female Spiritual care concerns: No Meds Home Medications and Allergies Home Medications Medication Instructions Recorded Confirmed Type nifedipine [Procardia XL] 30 mg PO BID 11/20/19 12/12/19 History magnesium 400 mg PO DAILY 12/03/19 12/12/19 History omeprazole 20 mg PO DAILY 12/03/19 12/12/19 History hydrocodone-acetaminophen [[place]] 1 tab PO Q3H PRN #20 tablet 12/14/19 Rx ibuprofen 600 mg PO Q6H PRN #30 tablet 12/14/19 Rx Allergies Allergy/AdvReac Type Severity Reaction Status Date / Time No Known Allergies Allergy Verified 07/11/14 19:09 Vital Signs Vital Signs - 24 hr 12/18/19 01:12 12/18/19 01:13 12/18/19 01:15 Temperature Pulse Rate 86 86 Respiratory Rate Blood Pressure 147/98 H 149/87 H Pulse Oximetry 100 12/18/19 01:18 12/18/19 01:23 12/18/19 01:28 Temperature Pulse Rate Respiratory Rate Blood Pressure Pulse Oximetry 100 100 100 12/18/19 01:30 12/18/19 01:33 12/18/19 01:38 Temperature Pulse Rate 87 Respiratory Rate Blood Pressure 149/96 H Pulse Oximetry 100 99 12/18/19 01:43 12/18/19 01:45 12/18/19 01:46 Temperature 36.1 C L Pulse Rate 81 Respiratory Rate Blood Pressure 139/91 H Pulse Oximetry 98 12/18/19 01:48 12/18/19 01:53 12/18/19 01:58 Temperature Pulse Rate Respiratory Rate Blood Pressure Pulse Oximetry 100 100 99 12/18/19 02:00 12/18/19 02:03 12/18/19 02:08 Temperature Pulse Rate 78 Respiratory Rate Blood Pressure 139/77 Pulse Oximetry 99 99 12/18/19 02:13 12/18/19 02:18 12/18/19 02:23 Temperature Pulse Rate Respiratory Rate Blood Pressure Pulse Oximetry 99 99 98 12/18/19 02:28 12/18/19 02:30 12/18/19 02:33 Temperature Pulse Rate 84 Respiratory Rate Blood Pressure 136/75 Pulse Oximetry 98 100 12/18/19 02:38 12/18/19 02:43 12/18/19 02:48 Temperature Pulse Rate Respiratory Rate Blood Pressure Pulse Oximetry 100 99 99 12/18/19 02:53 12/18/19 02
--- NOTE | 2019-12-18 09:06 | PM.OBDSVD ---
DS: Admitting Diagnosis Admitting Diagnosis Admitting Diagnosis: preeclampsia DS: Discharge Diagnosis Discharge Diagnosis (1) Preeclampsia in period: Code(s): O14.95 - Unspecified pre-eclampsia, complicating the puerperium Status: Acute Assessment and Plan: Continue procardia 30mg BID Follow up in 1 week as outpatient for BP check OB - DS: Summary OB Procedures : None OB Procedures Intrapartum: Other OB Procedures: : None Time Spent with Patient Time attestation: Total time spent providing and/or coordinating discharge services: Exam Const: General: comfortable and no acute distress Resp: Effort & Inspection: normal respiratory effort Cardio: Rate: regular rate Neuro: Speech: normal speech Psych: Mental Status: mental status grossly normal Affect: normal affect Discharge Plan Discharge Attending physician on discharge: Alma Moore Discharging Clinician: Alma Moore Patient Disposition: Home, Self-Care Activity: may shower, no straining and as tolerated Diet: as tolerated Patient Instructions: Antibiotic Form Stand Alone Forms: General Discharge Information Follow-up/Referrals: Sigifredo Colon MD [Physician] - Discharge Medications: Continued nifedipine [Procardia XL] 30 mg Tablet Extended Release 24hr 30 mg PO BID RF: 0 omeprazole 20 mg Capsule,Delayed Release(Dr/Ec) 20 mg PO DAILY RF: 0 hydrocodone-acetaminophen [[place]] 10-325 mg Tablet 1 tab PO Q3H PRN (Reason: Pain Rated 7-10) Qty: 20 RF: 0 ibuprofen 600 mg Tablet 600 mg PO Q6H PRN (Reason: Cramping) Qty: 30 RF: 0 Date of admission: 12/18/19 00:57 Primary Care Provider: BrittaniShaggy Admitting Provider: Sigifredo Colon Attending physician on admission: Sigifredo Colon
== END 2019-12-18 15:20 | disposition home or self-care (01) ==
PROVIDERS: Admitting Provider Obstetrics & Gynecology; PCP Physician Assistant; Visit Provider Obstetrics & Gynecology
DX: O14.95 Unspecified pre-eclampsia, complicating the puerperium (principal); O24.93 Unspecified diabetes mellitus in the puerperium; O99.335 Smoking (tobacco) complicating the puerperium; F17.210 Nicotine dependence, cigarettes, uncomplicated; Z79.899 Other long term (current) drug therapy
CPT/HCPCS: 96365; 96366; A9270; G0378; G0379; J3475; J7120

== ENCOUNTER 2024-10-08 19:22 | Emergency (ER) | payer SELFPAY ==
--- NOTE | ~2024-10-08 | XR_ITS ---
XR ankle LT min 3V Ordering provider: Howie Valdez MD History: . ankle injury . Comparison: June 15, 2007 FINDINGS: BONES: Fracture of the medial malleolus is seen. Horizontal fracture in the distal metaphysis of the distal fibula is highly suggestive. JOINT SPACES: The ankle mortise is normal. SOFT TISSUES: Soft tissue swelling over the medial and lateral malleoli. Calcaneus spur. IMPRESSION: Fracture medial malleolus. Highly suggestive fracture in the lateral malleolus. Reviewed, dictated and finalized at location A.
--- OUTSIDE RECORDS SUMMARY | 2024-10-08 19:24 | XMS_ITS | Clinical Summary ---
Author Organization [facility] Address [address] [place] [address] Phone Care Team Providers Care Frit Mixer And Burner Name Role Phone Sonal Jones Primary Care Provider [phone] Della Clark APRN, TRACK MAINTAINER Unavailable Allergies No known active allergies Medications balsalazide (COLAZAL) 750 MG Capsule balsalazide 750 mg capsule TAKE 3 CAPSULES BY MOUTH 3 TIMES A DAY 1 Active albuterol 108 (90 Base) MCG/ACT Aerosol Solution as needed Active hyoscyamine (ANASPAZ, LEVSIN) 0.125 MG Tablet as needed. 1 Active diphenoxylate-a tropine (LOMOTIL) 2.5-0.025 MG Tablet Take 1 Tablet by mouth 4 times daily as needed. Active dulaglutide (Trulicity) 0.75 MG/0.5ML Solution Pen-injector 0.75 mg by Subcutaneous route once a week. 1 mL 11 4 Active Additional Information Patient taking differently:0.75 mg Subcutaneous WEEKLY,MONDAYS, Reported on 11/30/2023 atorvastatin (LIPITOR) 10 MG Tablet Take 1 Tablet by mouth daily. 90 Tablet 3 4 Active lisinopril (PRINIVIL, ZESTRIL) 10 MG Tablet Take 1 Tablet by mouth daily. 90 Tablet 3 4 Active Additional Information Patient taking differently:10 mg OralEVERY EVENING, Reported on 11/30/2023 Cyanocobalamin (B-12) 1000 MCG Capsule Take 1 Tablet by mouth daily. 30 Capsule 11 4 Active colestipol (COLESTID) 1 GM TabletIndicatio ns:Diarrhea, unspecified type Take 1 Tablet by mouth 2 times daily. 60 Tablet 4 Active esomeprazole (NexIUM) 40 MG CAPSULE DELAYED RELEASEIndicati ons:Gastroesoph ageal reflux disease, unspecified whether esophagitis present Take 1 Capsule by mouth daily. 90 Capsule 3 4 Active budesonide (ENTOCORT EC) [address] ParticlesIndica tions:Eosinophi lic esophagitis Take 3 Capsules by mouth every morning. 90 Capsule 2 4 Active Additional Information Patient taking differently:9 mg OralEVERY EVENING, Reported on 11/30/2023 Cholecalciferol (D3 High Potency) 2000 UNIT Capsule Take 1 Capsule by mouth daily for 360 days. 30 Capsule 11 4 025 Active Problems Problem Noted Date Diagnosed Date GERD (gastroesophageal reflux disease) 4 Immunizations Immunization Administration Dates Next Due Influenza Vaccine,unspecified Formulation 2016 Influenza, Injectable, Quadrivalent 03/17/2020 Family History Medical History Relation Name Comments Heart Disease Father Hepatitis Father C Kidney Disease Father Cancer Maternal Grandfather Colon Cancer Mother blood Hypertension Mother Relation Name Status Comments Father Alive Maternal Grandfather Mother Alive Social History Tobacco Use Types Packs/Day Years Used Date Smoking Tobacco: Every Day Cigarettes 1 15.8 Started: 12/11/2008 Smokeless Tobacco: Never Alcohol Use Standard Drinks/Week Comments Not Currently 0 (1 standard drink = 0.6 oz pur e alcohol) [facility] Utilities Answer Date Recorded In the past 12 months has [employer], gas, oil, or water [email or web address] threatened to shut off services in your home? No 10/08/2023 Social Connection and Isolation Panel Answer Date Recorded In a typical week, how many times do you talk on the phone with family, friends, or neighbors? More than three times a week 10/08/2023 How often do you get togethe r with friends or relatives? Once a week 10/08/2023 How often do you attend formerly [facility] or orthodox services? Never 10/08/2023 Do you belong to any clubs o r organizations such as yazidi groups, unions, fraternal or athletic groups, or school groups? No 10/08/2023 How often do you attend meet ings of the clubs or organizations you belong to? Never 10/08/2023 Are you , , di vorced, , never , or living with a partner? Living with partner 10/08/2023 AUDIT-C Answer Date Recorded Q1: How often do you have a drink containing alcohol? Never 10/08/2023 Q2: How many drinks containi ng alcohol do you have on a typical day when you are drinking? Patient does not drink Q3: How often do you have si x or more drinks on one occasion? Never 10/08/2023 Overall Financial Resource Strain (CARDIA) Answe r Date Recorded How hard is it for you to pa y for the very basics like food, housing, medical care, and heating? Somewhat hard 10/08/2023 [facility] - Occupational Stress Questionnaire Answer Date Recorded Do you feel stress - tense, restless, nervous, or anxious, or unable to sleep at night because your mind is troubled all the time - these days? Very much 10/08/2023 Exercise Vital Sign Answer Date Recorde d On average, how many days pe r week do you engage in moderate to strenuous exercise (like a brisk walk)? 3 days 10/08/2023 On average, how many minutes do you engage in exercise at this level? 60 min 10/08/2023 Hunger Vital Sign Answer Date Recorded Within the past 12 months, y ou worried that your food would run out before you got the money to buy more. Sometimes true Within the past 12 months, t he food you bought just didn't last and you didn't have money to get more. Sometimes true 01/2024 PRAPARE - Transportation Answer Date Re corded In the past 12 months, has l ack of transportation kept you from medical appointments or from getting medications? No 09/28 In the past 12 months, has l ack of transportation kept you from meetings, work, or from getting things needed for daily living? No 10/08/2023 Housing Stability Vital Sign Answer Lavell e Recorded In the last 12 months, was t here a time when you were not able to pay the mortgage or rent on time? No 10/08/2023 In the past 12 months, how m any times have you moved where you were living? 0 10/08/2023 At any time in the past 12 m [facility], were you homeless or living in a nursing home (including now)? No 10/08/2023 Sexually Active Control Partners Comments Yes Male Comments Unknown Sex and Gender Information Value Date Recorded Sex Assigned at Not on file Legal Sex Female 12:12 PM CDT Gender Identity Not on file Sexual Orientation Not on file Last Filed Vital Signs Vital Sign Reading Time Taken Comments Blood Pressure 126/87 12/12/2023 12:01 PM CDT Pulse 92 12/12/2023 12:01 PM CDT Temperature 36 C (96.8 F) 12/12/2023 12:01 PM CDT Respiratory Rate 18 12/12/2023 12:01 PM CDT Oxygen Saturation 98% 12/12/2023 12:01 PM CDT Inhaled Oxygen Concentration - - Weight 113.4 kg (250 lb) 12/12/2023 10:46 AM CDT Height 165.1 cm (5' 5) 12/12/2023 10:46 AM CDT Body Mass Index 41.6 12/12/2023 10:46 AM CDT Plan of Treatment Health Maintenance Due Date Last Done Comments Human Papillomavirus (HPV) Immunization (1 - 3-dose series) 2005 Respiratory Syncytial Virus (RSV) Immunization (Adult) (1 - 1-dose 75+ series) 2065 Influenza Immunization Discontinued , 04/30/2016 Hepatitis B Immunization Discontinued Hepatitis C Virus (HCV) Screening Discontinued Meningococcal Immunization (ACWY) Aged Out No longer eligible based on patient's age to complete this topic Pneumococcal Immunization Combined Discontinued Rotavirus Immunization Aged Out No lo nger eligible based on patient's age to complete this topic SARS-COV-2 Immunization Discontinued TdaP Immunization Discontinued Insurance [place] Care Teams Frit Mixer And Burner Relationship Specialty Start Date End Date Sonal Jones DO [address] [address] PCP - General Family Medicine 09/25/23 Della Clark APRN, TRACK MAINTAINER [address] [place] [address] Nurse Practitioner Advanced Practice Nurse 11/14/23
--- OUTSIDE RECORDS SUMMARY | 2024-10-08 19:24 | XMS_ITS | Clinical Summary ---
Author Organization [facility] Address [address] [place] [address] Phone Care Team Providers Care Ux Design Lead Name Role Phone Marilyn Jaime NP Primary Care Provider [phone] Taina Adams MD Unavailable [phone] Allergies No known active allergies Medications buPROPion XL (WELLBUTRIN XL) 300 mg 24 hr tablet Take 300 mg by mouth daily. Active traMADol (ULTRAM) 50 mg tablet Take 1 tablet (50 mg total) by mouth every 6 (six) hours as needed for pain. 15 tablet 9 Active acetaminophen (TYLENOL) 500 mg tablet Take 500 mg by mouth as needed prn Active albuterol HFA (ProAir HFA) 90 mcg/actuation inhaler as needed Active balsalazide (COLAZAL) 750 mg capsule TAKE 3 CAPSULES BY MOUTH 3 TIMES A DAY [address] (CYMBALTA) 60 mg capsule Take by mouth daily 1 Active ferrous sulfate 325 mg (65 mg of elemental iron) tablet 1 Active hyoscyamine (LEVSIN) 0.125 mg tablet 1 Active rosuvastatin (CRESTOR) 5 mg tablet Take 5 mg by mouth daily 1 Active cyanocobalamin, vitamin B-12, 1,000 mcg/mL kit Inject 1,000 mcg as directed every 30 (thirty) days Active esomeprazole DR (NexIUM) 40 mg capsule Take 1 capsule (40 mg total) by mouth daily before breakfast 90 capsule 3 1 Active budesonide EC (ENTOCORT EC) 3 mg 24 hr capsule Take 3 capsules (9 mg total) by mouth every morning 90 capsule 3 1 Active fluticasone propionate (Flovent HFA) 220 mcg/actuation inhalerIndicatio ns:Eosinophilic Esophagitis [place] 2 sprays into mouth and swallow twice daily. Should not use spacer or inhale medication. Should not eat or drink for 30 minutes after administration . 1 Inhaler 2 1 Active docusate sodium (COLACE) 100 mg capsule 1 Active ibuprofen (ADVIL,MOTRIN) 800 mg tablet 1 Active metoprolol XL (TOPROL-XL) 25 mg extended release tablet 1 Active nitroglycerin (NITROSTAT) 0.4 mg SL tablet prn 1 Active Active Problems Problem Noted Date Diagnosed Date Family history of colon cancer 02/17/2021 Overview (02/17/2021): Added automatically from request for surgery [id number] History of colonic polyps 02/17/2021 Overview (02/17/2021): Added automatically from request for surgery [id number] Ulcerative colitis without complications 021 Assessment & Plan (02/27/2021 9:55 AM CDT): More than 10 years since diagnosis. Still symptomatic on Colazal and Entocort. Will schedule colonoscopy for evaluation. Check TB screening test and chest X ray. folow up in 3 months or sooner if needed. Eosinophilic esophagitis 12/22/2020 Assessment & Plan (02/27/2021 9:56 AM CDT): Doing well on Nexium so will continue the same. Ulcer of esophagus without bleeding 12/22/2020 Gastroesophageal reflux dise ase with esophagitis without hemorrhage 12/22/2020 Tobacco use disorder 12/22/2020 Iron deficiency anemia due to chronic blood loss 12/22/2020 Iron deficiency anemia 08/24/2020 Postoperative visit 06/07/2020 Metatarsalgia 05/16/2020 Bilateral plantar fasciitis 05/27/2017 Immunizations Immunization Administration Dates Next Due Influenza, Quadrivalent, Split, Intramuscular Influenza, Unspecified 04/30/2016 Surgical History Surgery Date Site/Laterality Comments APPENDECTOMY SECTION x 3 CHOLECYSTECTOMY COLONOSCOPY 04/30/2020 - 04/29/2021 ESOPHAGOGASTRODUODENOSCOPY 2020 05 OSTEOTOMY TUBAL LIGATION Medical History Medical History Date Comments Depression Ulcerative colitis (HCC) Colon polyp Hypertension Hyperlipidemia Asthma Family History Medical History Relation Name Comments Heart disease Father Hypertension Father Kidney disease Father Colon cancer Maternal Grandfather Hypertension Mother Relation Name Status Comments Father Maternal Grandfather Mother Social History Tobacco Use Types Packs/Day Years Used Date Smoking Tobacco: Every Day Cigarettes Smokeless Tobacco: Never Tobacco Cessation:Ready to Q uit: No; Counseling Given: No Alcohol Use Standard Drinks/Week Comments No 0 (1 standard drink = 0.6 oz pur e alcohol) AUDIT-C Answer Date Recorded Q1: How often do you have a drink containing alc ohol? Monthly or less 12/22/2020 Q2: How many drinks containi ng alcohol do you have on a typical day when you are drinking? 1 or 2 12/22/2020 Q3: How often do you have si x or more drinks on one occasion? Never 12/22/2020 Personal Safety Answer Date Recorded Getting School Help Needed Not on file 06/23 Comments Unknown Sex and Gender Information Value Date Recorded Sex Assigned at Not on file Legal Sex Female 10:08 PM LITIGATION SECRETARY Gender Identity Not on file Sexual Orientation Not on file Obstetrics History Last Filed Vital Signs Vital Sign Reading Time Taken Comments Blood Pressure 123/77 05/23/2021 11:00 AM LITIGATION SECRETARY Pulse 82 05/23/2021 11:00 AM LITIGATION SECRETARY Temperature 36.9 C (98.4 F) 05/23/2021 11:00 AM LITIGATION SECRETARY Respiratory Rate 20 05/23/2021 11:00 AM LITIGATION SECRETARY Oxygen Saturation 100% 05/23/2021 11:00 AM LITIGATION SECRETARY Inhaled Oxygen Concentration - - Weight 112.9 kg (249 lb) 05/23/2021 8:46 AM LITIGATION SECRETARY Height 165.1 cm (5' 5) 05/23/2021 8:46 AM LITIGATION SECRETARY Body Mass Index 41.44 05/23/2021 8:46 AM LITIGATION SECRETARY Plan of Treatment Not on file Insurance Advance Directives For more information, please contact: [phone] * Full Code (Latest Code Status on File) Date Activated Date Inactivated Comments 05/23/2021 8:50 AM 05/23/2021 3:24 PM Care Teams Ux Design Lead Relationship Specialty Start Date End Date Marilyn Jaime NP PCP - General Nurse Practitioner 12/07/20 Taina Adams MD [address] [place] [address] DANIELLE GARCIA [id number] 12/07/20
--- OUTSIDE RECORDS SUMMARY | 2024-10-08 19:24 | XMS_ITS | Patient Health Record ---
Author Organization [facility] Address [address] [place] [address] Care Team Providers Care Phlebotomy Services Technician Name Role Phone Candido Blake Primary Care Provider Reason For Referral No Information Plan Of Treatment Pending Test Test Name Order Date At Home SARS-CoV-2, VERENICE 01/30/2022 At Home SARS-CoV-2, VERENICE 01/16/2022 At Home SARS-CoV-2, VERENICE 01/23/2022 Insurance Providers Payer Name Payer Address Payer Phone Subscriber Number Group Number Insured Name Patient Relationship to Insured Coverage Start Date Coverage End Date [address] [phone] [id number] Alexandra Isaacs Self - patient is the insured 2
--- OUTSIDE RECORDS SUMMARY | 2024-10-08 19:24 | XMS_ITS | Clinical Summary ---
Author Organization [facility] Terese Senior Address [address] [place] [address] Care Team Providers Care Chemical Laboratory Technician Name Role Phone Provider, Abstract Primary Care Provider Unavail able Allergies No known active allergies Medications acetaminophen (TYLENOL) 500 mg tablet Take 500 mg by mouth every 4 hours as needed. Active balsalazide (COLAZAL) 750 mg Capsule Active colestipoL (COLESTID) 1 gram tablet Active dicyclomine (BENTYL) 10 mg capsule Active DULoxetine (CYMBALTA) 60 mg Capsule, Delayed Release(E.C.) Active ergocalciferol (VITAMIN D2) 50,000 unit capsule Active ferrous sulfate 325 mg (65 mg iron) tablet Active hyoscyamine 0.125 mg tablet hyoscyamine sulfate 0.125 mg tablet Active cyanocobalamin, vitamin B-12, (VITAMIN B-12 INJECTION) by Injection route. Per pcp Active albuterol sulfate 90 mcg/Actuation inhaler as needed Active docusate sodium (COLACE) 100 mg capsule 1 Active ibuprofen (MOTRIN) 800 mg tablet 1 Active metoprolol succinate (TOPROL XL) 25 mg Extended Release 24 hour tablet 1 Active nitroglycerin (NITROSTAT) 0.4 mg Tablet, Sublingual prn 1 Active rosuvastatin (CRESTOR) 10 mg tablet Take 1 Tablet by mouth daily. 1 Active Active Problems Problem Noted Date Diagnosed Date Iron deficiency anemia 08/24/2020 Family History Relation Name Status Comments Brother Alive Daughter 1 Alive Daughter 2 Alive Father Alive Mother Alive Social History Tobacco Use Types Packs/Day Years Used Date Smoking Tobacco: Every Day Cigarettes Smokeless Tobacco: Never Alcohol Use Standard Drinks/Week Comments Yes 0 (1 standard drink = 0.6 oz pur e alcohol) Comments No Sex and Gender Information Value Date Recorded Sex Assigned at Not on file Legal Sex Female 1:23 PM CDT Gender Identity Not on file Sexual Orientation Not on file Last Filed Vital Signs Vital Sign Reading Time Taken Comments Blood Pressure 138/101 02/23/2021 8:53 AM CDT patient stated her BP has been running high Pulse 103 02/23/2021 8:53 AM CDT Temperature 36.4 C (97.6 F) 02/23/2021 8:53 AM CDT Respiratory Rate - - Oxygen Saturation 98% 02/23/2021 8:5 3 AM CDT Inhaled Oxygen Concentration - - Weight 113.5 kg (250 lb 4.8 oz) 02/23/2021 8:53 AM CDT Height 165.1 cm (5' 5) 02/23/2021 8:53 AM CDT Body Mass Index 41.65 02/23/2021 8:53 AM CDT Plan of Treatment Health Maintenance Due Date Last Done Comments DTAP/TDAP/TD VACCINES (1 - Tdap) 2009 HEPATITIS B VACCINES (1 of 3 - 19+ 3-dose series) 2009 HPV/Cotest (21-29) 08/06/2011 CERVICAL CANCER SCREENING 2020 HPV/Cotest (30-65) 2020 PAP SMEAR 2020 INFLUENZA VACCINE (#1) 2023 03/17/2020 HPV VACCINES Aged Out No longer eligi ble based on patient's age to complete this topic Insurance [place] Care Teams Chemical Laboratory Technician Relationship Specialty Start Date End Date Provider, Abstract NO ADDRESS ON FILE PCP - General 08/24/20
--- OUTSIDE RECORDS SUMMARY | 2024-10-08 19:24 | XMS_ITS | Referral Summary ---
Author Organization [facility] Address [address] [place] [address] Phone Care Team Providers Care Furniture Inspector Name Role Phone Marilyn Jaime NP Primary Care Provider [phone] Taina Adams MD Unavailable Allergies No known active allergies Medications buPROPion [...] (Flovent HFA) 220 mcg/actuation inhalerIndicatio ns:Eosinophilic Esophagitis [place] 2 sprays into mouth and swallow twice [...] (02/17/2021): Added automatically from request for surgery [id number] History of colonic polyps 02/17/2021 Overview (02/17/2021): Added automatically from request for surgery [id number] Ulcerative colitis without complications 021 Assessment & [...] Influenza, Quadrivalent, Split, Intramuscular Influenza, Unspecified 04/30/2016 Social History Tobacco Use Types Packs/Day Years [...] on file Legal Sex Female 10:08 PM ACOUSTICAL INSTALLER Gender Identity Not on file Sexual Orientation Not on file Last Filed Vital Signs Vital Sign Reading Time Taken Comments Blood Pressure 123/77 05/23/2021 11:00 AM ACOUSTICAL INSTALLER Pulse 82 05/23/2021 11:00 AM ACOUSTICAL INSTALLER Temperature 36.9 C (98.4 F) 05/23/2021 11:00 AM ACOUSTICAL INSTALLER Respiratory Rate 20 05/23/2021 11:00 AM ACOUSTICAL INSTALLER Oxygen Saturation 100% 05/23/2021 11:00 AM ACOUSTICAL INSTALLER Inhaled Oxygen Concentration - - Weight 112.9 kg (249 lb) 05/23/2021 8:46 AM ACOUSTICAL INSTALLER Height 165.1 cm (5' 5) 05/23/2021 8:46 AM ACOUSTICAL INSTALLER Body Mass Index 41.44 05/23/2021 8:46 AM ACOUSTICAL INSTALLER Plan of Treatment Not on file Insurance Advance Directives For more information, please contact: [phone] * Full Code (Latest Code Status on File) Date Activated Date Inactivated Comments 05/23/2021 8:50 AM 05/23/2021 3:24 PM Care Teams Furniture Inspector Relationship Specialty Start Date End Date Marilyn Jaime NP PCP - General Nurse Practitioner 12/07/20 Taina Adams MD [address] [place] [address] DANIELLE GARCIA [id number] 12/07/20
--- OUTSIDE RECORDS SUMMARY | 2024-10-08 19:24 | XMS_ITS | CONTINUITY OF CARE DOCUMENT ---
Author Name jose miguel mariaasiomara Address Unknown Organization [facility] Address [address] [place] [address] Phone [phone] Care Team Providers Care Hide Cleaner Name Role Phone Kaden ONEILL, Cary Unavailable [phone] SARINA PORTILLO Unavailable SARINA PORTILLO Unavailable [phone] PROBLEMS Condition Status Date Provider Notes Hyperlipidemia active Cary Alfonso MD Essential hypertension- has had htn post active Cary Alfonso MD Crohns' disease active Cary Alfonso MD Anemia active Cary Alfonso MD SANDY--mild active Cary Alfonso MD Chest pain--stress nuc nl lv ef, breat att, 01/2021 active Cary Alfonso MD Obesity active Cary Alfonso MD ENCOUNTERS Date Type Provider Location Encounter Diag nosis - In-person encounter Office Visit Cary Alfonso MD [place] [facility] - In-person encounter Office Visit Cary Alfonso MD [place] [facility] HyperlipidemiaEssential hypertension- has had htn post partumCrohns' diseaseAnemiaOSA--mildChest pain--stress nuc nl lvef, breat att, 01/2021Obesity VITAL SIGNS Date Observation Value Provider Body Mass Index (Ratio) 41.60 kg/m2 Maninder Alfonso MD blood pressure, cuff size large Tr steve Hubbard blood pressure, diastolic 80 mm[Hg] Tr steve Hubbard blood pressure, systolic 130 mm[Hg] Rashid dave Hubbard respiratory rate E&M 16 /min Herbert Hubbard oxygen saturation, oximetry 98 % Herbert Hubbard pulse rate 108 /min Herbert Hubbard weight E&M 250 [lb_av] Herbert Hubbard height E&M 65 [in_i] Herbert Hubbard HISTORY OF MEDICATION USE Medication Status Instructions Dates Provider Indications Com ments hydrochlorothiazide 12.5 mg tablet active Take 1 tablet by mouth once a day Austin Mccrayzalizbeth duloxetine 60 mg capsule,delayed release(DR/EC) active Austin Nurmedzai rosuvastatin 10 mg tablet active Austin Mccrayzai ferrous sulfate 325 mg (65 mg iron) tablet active Austin Mccrayzai budesonide 3 mg capsule,delayed,extend. release active Austin Mccrayzalizbeth ergocalciferol (vitamin D2) 1,250 mcg (50,000 unit) capsule active Austin Mccrayzai hyoscyamine sulfate 0.125 mg tablet active Austin Nurmedzai nitroglycerin 0.4 mg tablet, sublingual active Austin Mccrayzai metoprolol succinate 50 mg tablet extended release 24 hr active TAKE 1 TABLET BY MOUTH EVERY DAY Austin Ahuja SOCIAL HISTORY Date Observation Value Provider social history reviewed E&M revi ewed - no changes required Austin Ahuja social history E&M S moking History: P jamir currently smokes every day. Cary Alfonso MD social history reviewed E&M revi ewed - no changes required Cary Alfonso MD smoking history, tot al pack/day 10 Herbert Hubbard cigarette use yes Herbert reynolds smoking status Current every day smoker T dimitry Hubbard INSURANCE PROVIDERS Payer name Policy type / Coverage type [place] [employer] [place] Medicaid [id number] TREATMENT PLAN Date Name Performer [id number],S, Austin Gu i [id number],S, Austin uG i [id number],S, Austin Gu i [id number],B, Austin Gu i Cardiology Austin Ahuja Cardiology Austin Ahuja Cardiology Austin Ahuja Cardiology Austin Ahuja Date Name Renal Artery Duplex
--- OUTSIDE RECORDS SUMMARY | 2024-10-08 19:24 | XMS_ITS ---
Author Organization [facility] Address [address] [place] [address] Phone Care Team Providers Care Behavior Interventionist Name Role Phone Sonal Jones DO Primary Care Provider [phone] Della Clark APRN, INSTRUCTION ASSISTANT PRINCIPAL Unavailable [facility] Status:Enrolled (Active) Start date:05/28/2024 Enrollment date:05/28/2024 Related social drivers of health:Social Connections, Tobacco Use, Financial Resource Strain, Depression, Stress, Food Insecurity Continued Care and Services Coordination
[2024-10-08 19:31] VITALS: BP 135/95; PULSE 108; RESP 20; TEMP 36.4; O2SAT 100
--- NOTE | 2024-10-08 20:12 | ED_ITS ---
HPI - Extremity Injury (Lower) General Chief Complaint: Extremity Injury, Lower Stated Complaint: left ankle injury after falling in a hole Time Seen by Provider: 10/08/24 19:56 History of Present Illness HPI Narrative: 34-year-old female with history of hypertension presenting to the emergency department with left ankle injury. Patient states that she was chasing her dog in the yd when she fell into a hole and twisted her ankle and heard a loud snap. Was not able to bear weight immediately afterwards and rates her pain 7/10. No history of broken bones in her foot before. Denies any other injuries or head trauma. No blood thinner use. Related Data Home Medications ?Medication ?Instructions ?Recorded ?Confirmed ?Last Taken ?Type budesonide 3 mg 3 mg PO DAILY 02/21/21 02/23/21 Unknown History capsule,delayed,extended release duloxetine 60 mg capsule,delayed 60 mg PO DAILY 02/21/21 02/23/21 Unknown History release esomeprazole magnesium 40 mg 40 mg PO DAILY 02/21/21 02/23/21 Unknown History capsule,delayed release (Nexium) metoprolol succinate 25 mg 25 mg PO DAILY 02/21/21 02/23/21 Unknown History tablet,extended release 24 hr nitroglycerin 0.4 mg sublingual 0.4 mg sublingual Q5-15M PRN Angina 02/21/21 02/23/21 Unknown History tablet rosuvastatin 10 mg tablet 10 mg PO DAILY 02/21/21 02/23/21 Unknown History Allergies Allergy/AdvReac Type Severity Reaction Status Date / Time No Known Allergies Allergy Verified 10/08/24 19:22 Review of Systems Review of Systems: As reviewed [facility] Past Medical History Medical History Hypertension Diabetes Surgical History Surgical History H/O section Family History Family History Father Muscle wasting disorder Heart disease Kidney disease Grandparent Congestive heart failure Cancer Social History Social History Smoking packs per day: 1 Smoking cigarettes per day: 20.0 Years smoked: 13 Smoking pack-years: 13.00 Smoking status: Current every day smoker Tobacco type: cigarettes Second hand tobacco smoke exposure: Yes Alcohol intake: current Substance use: never Living arrangements: with family Occupation/Education: occupation Additional occupation/education comments: med records Gender identity (if verbalized by the patient): Female Spiritual care concerns: No Exam Narrative: GENERAL: [Well-appearing, well-nourished, and in no acute distress.] HEAD: [Normocephalic, atraumatic.] EYES: [PERRLA and EOMI.] ENT: Nares clear, no rhinorrhea or epistaxis. Mucous membranes moist. NECK: Supple. CHEST: [Clear to auscultation. No respiratory distress.] HEART: [Regular rate and rhythm]. No murmur heard. [Normal peripheral pulses.] ABDOMEN: [Soft, nondistended], [nontender], [No rigidity or guarding] EXTREMITIES: Marked swelling over the medial and lateral malleolus with tenderness to palpation but no overlying skin changes otherwise. 2+ dorsalis pedis pulse, able to wiggle the toes, no sensory deficits. No pain or tenderness in the proximal leg or other contralateral extremity. SKIN: Warm, dry, no rash. NEURO: [No focal deficits]. Alert and oriented [x3.] PSYCH: [Normal mood and affect.] Course Vital Signs Vital signs: Vital Signs Temperature 36.4 C 10/08/24 19:31 Pulse Rate 108 H 10/08/24 19:31 Respiratory Rate 20 10/08/24 19:31 Blood Pressure 135/95 H 10/08/24 19:31 Pulse Oximetry 100 10/08/24 19:31 Oxygen Delivery Room Air 10/08/24 19:31 Temperature 36.4 C 10/08/24 19:31 Pulse Rate 108 H 10/08/24 19:31 Respiratory Rate 20 10/08/24 19:31 Blood Pressure 135/95 H 10/08/24 19:31 Pulse Oximetry 100 10/08/24 19:31 Oxygen Delivery Room Air 10/08/24 19:31 Procedures Orthopedic Splinting/Casting Injury #1: Splinting/Casting Date: 10/08/24 Splinting/Casting Time: 20:17 Side: left Lower Extremity Injury Location: ankle Lower Extremity Immobilizer: posterior splint and stirrup splint Splint: customized in ED Pre-Procedure Neuro Vascular Exam: normal Post-Procedure Neuro Vascular Exam: normal Other Orthopedic Equipment: crutches MDM - Extremity Injury (Lower) MDM Narrative Medical decision making narrative: 34-year-old female presenting with left ankle injury. She states that she was chasing her dog in the [place]d when she planted her foot into a hole and fell down. She heard a pop and twisted her ankle. She has obvious swelling over the medial and lateral malleolus with no overlying skin changes deformity otherwise. 2+ dorsalis pedis pulse, 2+ posterior tibialis pulse, warm extremity, good distal perfusion and capillary refill. No neurovascular compromise. X-rays were obtained which reveal a by malleolar fracture without any displacement. No need for reduction here in the emergency department. Patient was given intramuscular Dilaudid for analgesia, posterior short-leg cast splint was applied, crutch and crutch training ordered. Discussed the case with the on-call orthopedic surgeon Dr. Taveras who will see her in clinic and patient can be safely discharged home at this time with return precautions and pain medications. Patient comfortable with this plan of care and safely discharged after splint was applied and she was re-evaluated with good distal neuro vasculature maintained. Medical Records Attestation: I reviewed the patient's medical records. Imaging Data Attestation: I personally reviewed and interpreted this imaging study as follows: My impression: Impressions Ankle X-Ray 10/08/24 19:56 IMPRESSION: Fracture medial malleolus. Highly suggestive fracture in the lateral malleolus. Discharge Plan Discharge Clinical Impression: Bimalleolar ankle fracture Patient Disposition: Home Condition: Stable Instructions: Antibiotic Form Additional Instructions: Maintain the splint and crutches for ambulation, we will send you home with pain control medications. Contact the provided campaign management specialist who will be able to see you in clinic in the next several days. Return with any worsening pain, numbness in the toes, inability to move the toes, any other concerns. Patient Language: Swiss Prescriptions: New ibuprofen 800 mg tablet 800 mg PO TID PRN (Reason: pain) Qty: 30 0RF oxycodone 5 mg tablet 5 mg PO Q8H PRN (Reason: pain) Qty: 10 0RF acetaminophen [Tylenol Extra Strength] 500 mg tablet 1,000 mg PO TID PRN (Reason: pain) Qty: 30 0RF No Action esomeprazole magnesium [Nexium] 40 mg Capsule,Delayed Release(Dr/Ec) 40 mg PO DAILY nitroglycerin 0.4 mg Tablet, Sublingual 0.4 mg SUBLINGUAL Q5-15M PRN (Reason: Angina) metoprolol succinate 25 mg Tablet Extended Release 24 Hr 25 mg PO DAILY budesonide 3 mg Capsule,Delayed,Extend.Release 3 mg PO DAILY rosuvastatin 10 mg Tablet 10 mg PO DAILY duloxetine 60 mg Capsule,Delayed Release(Dr/Ec) 60 mg PO DAILY ibuprofen 600 mg Tablet 600 mg PO Q6H PRN (Reason: Cramping) Qty: 30 0RF Follow-up/Referrals: Hardik Taveras MD [Physician] - 2 Days (Bimalleolar ankle fracture) UNKNOWN,DOCTOR [Primary Care Provider] - Time of Disposition: 20:23
[2024-10-08] MEDS: HYDROmorphone HCL INJ (*CRX) 2 MG/ML VIAL 0.5 MG IM (20:44)
--- OUTSIDE RECORDS SUMMARY | 2024-10-08 20:44 | XMS_ITS | Referral Summary ---
Author Organization [facility] Address [address] [place] [address] Phone Care Team Providers Care Leveler Name Role Phone Marilyn Jaime NP Primary Care Provider [phone] Taina Adams MD Unavailable [phone] Allergies No known active allergies Medications buPROPion [...] (Flovent HFA) 220 mcg/actuation inhalerIndicatio ns:Eosinophilic Esophagitis [place] 2 sprays into mouth and swallow twice [...] (02/17/2021): Added automatically from request for surgery [id number] History of colonic polyps 02/17/2021 Overview (02/17/2021): Added automatically from request for surgery [id number] Ulcerative colitis without complications 021 Assessment & [...] on file 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 Gender Identity Not on file Sexual Orientation Not on file Last Filed Vital Signs Vital Sign Reading Time Taken Comments Blood Pressure 123/77 05/23/2021 11:00 AM MOLD PARTER Pulse 82 05/23/2021 11:00 AM MOLD PARTER Temperature 36.9 C (98.4 F) 05/23/2021 11:00 AM MOLD PARTER Respiratory Rate 20 05/23/2021 11:00 AM MOLD PARTER Oxygen Saturation 100% 05/23/2021 11:00 AM MOLD PARTER Inhaled Oxygen Concentration - - Weight 112.9 kg (249 lb) 05/23/2021 8:46 AM MOLD PARTER Height 165.1 cm (5' 5) 05/23/2021 8:46 AM MOLD PARTER Body Mass Index 41.44 05/23/2021 8:46 AM MOLD PARTER Plan of Treatment Not on file Insurance Advance Directives For more information, please contact: [phone] * Full Code (Latest Code Status on File) Date Activated Date Inactivated Comments 05/23/2021 8:50 AM 05/23/2021 3:24 PM Care Teams Leveler Relationship Specialty Start Date End Date Marilyn Jaime NP PCP - General Nurse Practitioner 12/07/20 Taina Adams MD [address] [place] [address] DANIELLE GARCIA [id number] 12/07/20
--- OUTSIDE RECORDS SUMMARY | 2024-10-08 20:44 | XMS_ITS | Clinical Summary ---
Author Organization [facility] Address [address] [place] [address] Phone Care Team Providers Care Publications Sales Representative Name Role Phone Marilyn Jaime NP Primary Care Provider [phone] Taina Adams MD Unavailable [phone] Allergies No known active allergies Medications buPROPion [...] (Flovent HFA) 220 mcg/actuation inhalerIndicatio ns:Eosinophilic Esophagitis [place] 2 sprays into mouth and swallow twice [...] (02/17/2021): Added automatically from request for surgery [id number] History of colonic polyps 02/17/2021 Overview (02/17/2021): Added automatically from request for surgery [id number] Ulcerative colitis without complications 021 Assessment & [...] on file 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 Gender Identity Not on file Sexual Orientation Not on file Obstetrics History Last Filed Vital Signs Vital Sign Reading Time Taken Comments Blood Pressure 123/77 05/23/2021 11:00 AM TRENCH DIGGING MACHINE OPERATOR Pulse 82 05/23/2021 11:00 AM TRENCH DIGGING MACHINE OPERATOR Temperature 36.9 C (98.4 F) 05/23/2021 11:00 AM TRENCH DIGGING MACHINE OPERATOR Respiratory Rate 20 05/23/2021 11:00 AM TRENCH DIGGING MACHINE OPERATOR Oxygen Saturation 100% 05/23/2021 11:00 AM TRENCH DIGGING MACHINE OPERATOR Inhaled Oxygen Concentration - - Weight 112.9 kg (249 lb) 05/23/2021 8:46 AM TRENCH DIGGING MACHINE OPERATOR Height 165.1 cm (5' 5) 05/23/2021 8:46 AM TRENCH DIGGING MACHINE OPERATOR Body Mass Index 41.44 05/23/2021 8:46 AM TRENCH DIGGING MACHINE OPERATOR Plan of Treatment Not on file Insurance Advance Directives For more information, please contact: [phone] * Full Code (Latest Code Status on File) Date Activated Date Inactivated Comments 05/23/2021 8:50 AM 05/23/2021 3:24 PM Care Teams Publications Sales Representative Relationship Specialty Start Date End Date Marilyn Jaime NP PCP - General Nurse Practitioner 12/07/20 Taina Adams MD [address] [place] [address] DANIELLE GARCIA [id number] 12/07/20
--- OUTSIDE RECORDS SUMMARY | 2024-10-08 20:44 | XMS_ITS | Clinical Summary ---
Author Organization [facility] Address [address] [place] [address] Phone Care Team Providers Care Director Revenue Name Role Phone Sonal Jones Primary Care Provider [phone] Della Clark APRN, [employer] Unavailable Allergies No known active allergies Medications [...] drink = 0.6 oz pur e alcohol) [facility] Utilities Answer Date Recorded In the past 12 months has [employer], gas, oil, or water [employer] threatened to shut off services in your home? No 10/08/2023 Social Connection and Isolation Panel Answer Date Recorded In a typical week, how many times do you talk on the phone with family, friends, or neighbors? More than three times a week 10/08/2023 How often do you get togethe r with friends or relatives? Once a week 10/08/2023 How often do you attend [facility] or [facility] services? Never 10/08/2023 Do you belong to any clubs o r organizations such as gnosticism groups, unions, fraternal or athletic groups, or [...] medical care, and heating? Somewhat hard 10/08/2023 [facility] - Occupational Stress Questionnaire Answer Date [...] any time in the past 12 m [facility], were you homeless or living in a usp (including now)? No 10/08/2023 Sexually Active Control [...] Immunization Discontinued Insurance MEDICAID [place] Care Teams Director Revenue Relationship Specialty Start Date End Date Sonal Jones DO [address] [address] PCP - General Family Medicine 09/25/23 Della Clark APRN, [employer] [address] [place] [address] Nurse Practitioner Advanced Practice Nurse 11/14/23
--- OUTSIDE RECORDS SUMMARY | 2024-10-08 20:44 | XMS_ITS ---
Author Organization [facility] Address [address] [place] [address] Phone Care Team Providers Care Job Foreman Name Role Phone Sonal Jones DO Primary Care Provider [phone] Della Clark APRN, [employer] Unavailable [facility] Status:Enrolled (Active) Start date:05/28/2024 Enrollment date:05/28/2024 Related social drivers of health:Social Connections, Tobacco Use, Financial Resource Strain, Depression, Stress, Food Insecurity Continued Care and Services Coordination
--- OUTSIDE RECORDS SUMMARY | 2024-10-08 20:44 | XMS_ITS | Clinical Summary ---
Author Organization [facility] Terese Senior Address [address] [place] [address] Care Team Providers Care Cord Splicer Name Role Phone Provider, Abstract Primary Care [...] topic Insurance [place] Care Teams Cord Splicer Relationship Specialty Start Date End Date Provider, Abstract NO ADDRESS ON FILE PCP - General 08/24/20
--- OUTSIDE RECORDS SUMMARY | 2024-10-08 20:44 | XMS_ITS | CONTINUITY OF CARE DOCUMENT ---
Author Name jose miguel mariaasiomara Address Unknown Organization [facility] Address [address] [place] [address] Phone [phone] Care Team Providers Care Bottle Feeder Name Role Phone Kaden ONEILL, Cary Unavailable [phone] SARINA PORTILLO Unavailable SARINA PORTILLO Unavailable PROBLEMS Condition Status Date Provider Notes Hyperlipidemia [...] In-person encounter Office Visit Cary Alfonso MD [place] [facility] - In-person encounter Office Visit Cary Alfonso MD [place] [facility] HyperlipidemiaEssential hypertension- has had htn post [...] Payer name Policy type / Coverage type [place] Medicaid [id number] TREATMENT PLAN Date Name Performer [id number],S, [place] Gu i [id number],S, [place] uG i [id number],S, [place] Gu i [id number],B, [place] Gu i Cardiology [facility] [place] Ahuja Date Name Renal Artery Duplex
== END 2024-10-08 21:28 | disposition home or self-care (01) ==
LOC: ANHED 20:43
PROVIDERS: Emergency Provider Student in an Organized Health Care Education/Training Program
DX: S82.842A Displaced bimalleolar fracture of left lower leg, initial encounter for closed fracture (principal); I10 Essential (primary) hypertension; E11.9 Type 2 diabetes mellitus without complications; F17.210 Nicotine dependence, cigarettes, uncomplicated; Z79.899 Other long term (current) drug therapy; X50.9XXA Other and unspecified overexertion or strenuous movements or postures, initial encounter; W18.39XA Other fall on same level, initial encounter
CPT/HCPCS: 29515; 73610; 96372; 99284; J1171